=== PATIENT | female | born 1950 | race Caucasian/White ===

== ENCOUNTER 2016-09-10 10:28 | Emergency (ER) ==
[2016-09-10 11:30] LABS: MANUAL DIFF NEEDED? NO
--- NOTE | 2016-09-10 11:32 | PROVIDER DOCUMENTATION ---
HPI-General Adult <Yahir Henry - Last Filed: 09/10/16 12:54> - General Source: patient - History of Present Illness -Gen Adult Nature of Presenting Problems: 66 y/o WF c vague complaints of intermittent chest pain, abdominal pain, and chronic cough. States the chest pain are sharp, only lasting a few seconds, then are relieved. Not associated with food or exercise. Substernal without radiation. Also has abdominal, generalized, aching, without radiation. This has been for 24 hours, worsening today, associated with poor appetite. Checked blood sugar last night and it was low, but she had not eaten anything- not diabetic. Has not eaten anything today. complains of generalized fatigue. <Laurence Combs - Last Filed: 09/10/16 18:44> - General Chief Complaint: Shortness of Breath Stated Complaint: N/D, ABD PAINS Time Seen by Provider: 09/10/16 11:32 Allergies/Adverse Reactions: Patient Allergies Allergy/AdvReac Type Severity Reaction Status Date / Time No Known Allergies Allergy Verified 02/03/15 21:48 Home Medications: Levothyroxine [Synthroid] 125 microgm PO DAILY 02/03/15 Metoprolol/Hydrochlorothiazide [Metoprolol-Hctz 100-25 mg Tab] 1 each PO DAILY 02/03/15 Review of Systems - Adult - REVIEW OF SYSTEMS - ADULT Constitutional: reports: fatique. denies: chills, fever Eyes: reports: no symptoms reported. denies: decreased vision, blurred vision, double vision, eye pain Ears, Nose, Mouth & Throat: reports: no symptoms reported. denies: ear pain, nose pain, throat pain Cardiovascular: reports: see HPI, chest pain. denies: irregular heart rate, palpitations, syncope Respiratory: reports: see HPI, chronic cough, cough. denies: shortness of breath, wheezing Gastrointestinal: reports: see HPI, abdominal pain, nausea, poor appetite. denies: diarrhea, vomiting Genitourinary: reports: no symptoms reported. denies: dysuria, discharge, frequency, incontinence Musculoskeletal: reports: no symptoms reported. denies: bone pain, back pain, muscle aches Integumentary: reports: no symptoms reported. denies: rash Neurological: reports: no symptoms reported. denies: headache/migraines Psychiatric: reports: no symptoms reported Endocrine: reports: no symptoms reported Hematologic/Lymphatic: reports: no symptoms reported Allergic/Immunologic: reports: no symptoms reported All Other Systems: Reviewed and Negative <Laurence Combs - Last Filed: 09/10/16 18:44> Past History - Adult - PAST MEDICAL HISTORY-ADULT Review of Records: reports: Old Records Reviewed, Nursing Assessment Review, Medications Reviewed, Social history reviewed & non-contributory. Major Childhood Illnesses: reports: denies history Cardiovascular: reports: HTN, hyperlipidemia Respiratory: reports: denies history Gastrointestinal: reports: denies history Obstetrical/Gynecological: reports: denies history Genitourinary: reports: denies history Musculoskeletal: reports: denies history Neurological: reports: denies history Psychiatric: reports: depression Endocrine/Immune: reports: thyroid disorder Other Conditions: reports: denies history - PRIOR SURGERIES/PROCEDURES Surgical/Procedure History: reports: cholecystectomy, hysterectomy, BTL - FAMILY HISTORY Family History: reviewed, not pertinent - SOCIAL HISTORY Smoking: denies Substance Use: none/never Alcohol Use Frequency: never <Laurence Combs - Last Filed: 09/10/16 18:44> Physical Exam-General - PHYSICAL EXAM-ADULT Initial Vital Signs Reviewed: Yes - CONSTITUTIONAL General Appearance: appears well, alert, no apparent distress - EYES Eyes: PERRL/EOMI, pink conjunctivae - HEAD, EARS, NOSE, MOUTH & THROAT HENMT: normocephalic/atraumatic, moist mucous membranes, normal ENT inspection, TMs normal, pharynx normal. negative: tonsillar exudate, TM abnormal - NECK Neck: non-tender, full range of motion, supple, normal inspection. negative: lymphadenopathy - RESPIRATORY Respiratory: chest non-tender, lungs clear, normal breath sounds, no pleuratic chest pain, no respiratory distress, no accessory muscle use. negative: respiratory distress, decreased breath sounds, accessory muscle use, crackles, rales, rhonchi, stridor, wheezing - CARDIOVASCULAR Cardiovascular: normal peripheral pulses, regular rate, rhythm, no edema - GASTROINTESTINAL (ABDOMEN) Abdominal Exam: normal bowel sounds, non tender, soft, no organomegaly, no pulsatile mass. negative: abdominal bruit, abnormal bowel sounds, distended, guarding, rigid, rebound, tenderness - LYMPHATIC Lymphatic: no adenopathy - MUSCULOSKELETAL Extremity: normal gait Peripheral Pulses: radial (R): 2+, radial (L): 2+, dorsalis-pedis (R): 2+, dorsalis-pedis (L): 2+ - SKIN Integumentary: normal color, normal turgor, warm/dry - NEUROLOGIC Neurologic: grossly normal, no motor/sensory deficits - PSYCHIATRIC Psych/Mental Status: normal mood/affect, normal thought content, normal thought process, oriented x 3 <Laurence Combs - Last Filed: 09/10/16 18:44> Progress - PLAN OF CARE/RESULTS Progress/Plan/Lab Results: Orders Category Date Time Status ABDOMEN FLAT/UPRIGHT [RAD] Routine Exams 09/10/16 12:16 Taken CHEST-2 VIEWS [RAD] Stat Exams 09/10/16 11:01 Taken AMYLASE [CHEM] Stat Lab 09/10/16 11:23 Completed CBC WITH ELECTRONIC DIFF [HEME] Stat Lab 09/10/16 11:23 Completed CK PROFILE [SP CHEM] Stat Lab 09/10/16 11:23 Completed COMPREHENSIVE METABOLIC PANEL [CHEM] Stat Lab 09/10/16 11:23 Completed FREE T4 Stat Lab 09/10/16 11:23 Completed LIPASE [CHEM] Stat Lab 09/10/16 11:23 Completed MAGNESIUM [CHEM] Stat Lab 09/10/16 11:23 Completed PRO B-NATRIURETIC PEPTIDE Stat Lab 09/10/16 11:[address]IME WITH INR PL [COAG] Stat Lab 09/10/16 11:[address] [COAG] Stat Lab 09/10/16 11:23 Completed TROPONIN T Stat Lab 09/10/16 11:23 Completed TSH Stat Lab 09/10/16 11:23 Completed EKG [EKG] Stat Ther 09/10/16 11:01 Ordered Vital Signs - 24 hr 09/10/16 10:50 Temperature 98.2 F Pulse Rate 98 H Respiratory 18 Rate Blood Pressure 159/103 O2 Sat by Pulse 100 Oximetry Laboratory Tests 09/10/16 09/10/16 09/10/16 10:58 11:23 11:23 WBC RBC Hgb Hct MCV MCH MCHC RDW Std Deviation Plt Count MPV Immature Gran % (Auto) Neut % (Auto) Lymph % (Auto) [place] % (Auto) Eos % (Auto) Baso % (Auto) Immature Gran # (Auto) Neut # (Auto) Lymph # (Auto) [place] # (Auto) Eos # (Auto) Baso # (Auto) PT INR APTT (Factor Assay) Sodium 139 Potassium 3.8 Chloride 102 Carbon Dioxide 29 Anion Gap 8 BUN 12 Creatinine 0.9 Estimated GFR/1.73 m2 > 60 BUN/Creatinine Ratio 13 Glucose 117 H POC Glucose 110 H Calculated Osmolality 278 Calcium 9.1 Magnesium 2.1 Total Bilirubin 0.50 AST 21 ALT 25 Alkaline Phosphatase 87 Creatine Kinase 63 Troponin T < 0.010 Rnq-R-Htrfagdbrkw Pept Total Protein 7.1 Albumin 4.2 Globulin 3.0 Albumin/Globulin Ratio 1.0 Amylase 43 Lipase 24 TSH Free T4 09/10/16 09/10/16 09/10/16 11:23 11:23 11:23 WBC 3.90 L RBC 4.65 Hgb 12.9 Hct 39.1 MCV 84.1 MCH 27.7 MCHC 33.0 RDW Std Deviation 12.6 Plt Count 197 MPV 9.7 Immature Gran % (Auto) 0.0 Neut % (Auto) 59.9 Lymph % (Auto) 26.4 [place] % (Auto) 9.0 Eos % (Auto) 4.4 Baso % (Auto) 0.3 Immature Gran # (Auto) 0.00 Neut # (Auto) 2.34 Lymph # (Auto) 1.03 L [place] # (Auto) 0.35 Eos # (Auto) 0.17 Baso # (Auto) 0.01 PT 13.3 INR 0.98 APTT (Factor Assay) 30.6 Sodium Potassium Chloride Carbon Dioxide Anion Gap BUN Creatinine Estimated GFR/1.73 m2 BUN/Creatinine Ratio Glucose POC Glucose Calculated Osmolality Calcium Magnesium Total Bilirubin AST ALT Alkaline Phosphatase Creatine Kinase Troponin T Hkc-Z-Zkvnssrwjzf Pept 7 Total Protein Albumin Globulin Albumin/Globulin Ratio Amylase Lipase TSH Free T4 09/10/16 11:23 WBC RBC Hgb Hct MCV MCH MCHC RDW Std Deviation Plt Count MPV Immature Gran % (Auto) Neut % (Auto) Lymph % (Auto) [place] % (Auto) Eos % (Auto) Baso % (Auto) Immature Gran # (Auto) Neut # (Auto) Lymph # (Auto) [place] # (Auto) Eos # (Auto) Baso # (Auto) PT INR APTT (Factor Assay) Sodium Potassium Chloride Carbon Dioxide Anion Gap BUN Creatinine Estimated GFR/1.73 m2 BUN/Creatinine Ratio Glucose POC Glucose Calculated Osmolality Calcium Magnesium Total Bilirubin AST ALT Alkaline Phosphatase Creatine Kinase Troponin T Ocv-D-Clpbqafwpha Pept Total Protein Albumin Globulin Albumin/Globulin Ratio Amylase Lipase TSH 6.23 H Free T4 1.11 - EKG 1 Time of EKG reading by physician:: 11:32 EKG Read and Signed by:: Qi Null EKG Interpretation (*Must complete 3 of following elements*): Abnormal (nsr; cannot rule out anterior infarct age undetermined; abnormal ecg) Rate: 88 Rhythm: nsr - XRAY 1 XRAY: Bilateral XRAY Study: Chest, Abdomen Impression: Normal XRAY Interpretation: nad; <[facility] - Last Filed: 09/10/16 12:54> - PLAN OF CARE/RESULTS Progress/Plan/Lab Results: Orders Category Date Time Status ABDOMEN FLAT/UPRIGHT [RAD] Routine Exams 09/10/16 12:16 Completed CHEST-2 VIEWS [RAD] Stat Exams 09/10/16 11:01 Completed AMYLASE [CHEM] Stat Lab 09/10/16 11:23 Completed CBC WITH ELECTRONIC DIFF [HEME] Stat Lab 09/10/16 11:23 Completed CK PROFILE [SP CHEM] Stat Lab 09/10/16 11:23 Completed COMPREHENSIVE METABOLIC PANEL [CHEM] Stat Lab 09/10/16 11:23 Completed FREE T4 Stat Lab 09/10/16 11:23 Completed LIPASE [CHEM] Stat Lab 09/10/16 11:23 Completed MAGNESIUM [CHEM] Stat Lab 09/10/16 11:23 Completed PRO B-NATRIURETIC PEPTIDE Stat Lab 09/10/16 11:[address] Com[address]IME WITH INR PL [COAG] Stat Lab 09/10/16 11:[address] [COAG] Stat Lab 09/10/16 11:23 Completed TROPONIN T Stat Lab 09/10/16 11:23 Completed TSH Stat Lab 09/10/16 11:23 Completed EKG [EKG] Stat Ther 09/10/16 11:01 Draft Vital Signs Temp Pulse Resp BP Pulse Ox 09/10/16 13:38 97.1 F L 86 18 152/94 97 09/10/16 10:50 98.2 F 98 H 18 159/103 100 No Known Allergies Allergy (Verified 02/03/15 21:48) Levothyroxine [Synthroid] 125 microgm PO DAILY 06/06/15 Metoprolol/Hydrochlorothiazide [Metoprolol-Hctz 100-25 mg Tab] 1 each PO DAILY 02/03/15 Azithromycin [Zithromax Z-Samir] 250 mg PO DIRECTED #1 pkg 09/10/16 Ondansetron Odt [Zofran 8Mg Odt] 8 mg PO Q8H PRN PRN #20 tablet 09/10/16 Laboratory 09/10/16 09/10/16 09/10/16 11:23 11:23 11:23 WBC 3.90 L RBC 4.65 Hgb 12.9 Hct 39.1 MCV 84.1 MCH 27.7 MCHC 33.0 RDW Std Deviation 12.6 Plt Count 197 MPV 9.7 Immature Gran % (Auto) 0.0 Neut % (Auto) 59.9 Lymph % (Auto) 26.4 [place] % (Auto) 9.0 Eos % (Auto) 4.4 Baso % (Auto) 0.3 Immature Gran # (Auto) 0.00 Neut # (Auto) 2.34 Lymph # (Auto) 1.03 L [place] # (Auto) 0.35 Eos # (Auto) 0.17 Baso # (Auto) 0.01 PT 13.3 INR 0.98 APTT (Factor Assay) 30.6 Sodium Potassium Chloride Carbon Dioxide Anion Gap BUN Creatinine Estimated GFR/1.73 m2 BUN/Creatinine Ratio Glucose POC Glucose Calculated Osmolality Calcium Magnesium Total Bilirubin AST ALT Alkaline Phosphatase Creatine Kinase Troponin T Ltd-P-Uqqolzkpchy Pept Total Protein Albumin Globulin Albumin/Globulin Ratio Amylase Lipase TSH 6.23 H Free T4 1.11 09/10/16 09/10/16 09/10/16 11:23 11:23 11:23 WBC RBC Hgb Hct MCV MCH MCHC RDW Std Deviation Plt Count MPV Immature Gran % (Auto) Neut % (Auto) Lymph % (Auto) [place] % (Auto) Eos % (Auto) Baso % (Auto) Immature Gran # (Auto) Neut # (Auto) Lymph # (Auto) [place] # (Auto) Eos # (Auto) Baso # (Auto) PT INR APTT (Factor Assay) Sodium 139 Potassium 3.8 Chloride 102 Carbon Dioxide 29 Anion Gap 8 BUN 12 Creatinine 0.9 Estimated GFR/1.73 m2 > 60 BUN/Creatinine Ratio 13 Glucose 117 H POC Glucose Calculated Osmolality 278 Calcium 9.1 Magnesium 2.1 Total Bilirubin 0.50 AST 21 ALT 25 Alkaline Phosphatase 87 Creatine Kinase 63 Troponin T < 0.010 Ees-E-Omlmacbwacz Pept 7 Total Protein 7.1 Albumin 4.2 Globulin 3.0 Albumin/Globulin Ratio 1.0 Amylase 43 Lipase 24 TSH Free T4 09/10/16 10:58 WBC RBC Hgb Hct MCV MCH MCHC RDW Std Deviation Plt Count MPV Immature Gran % (Auto) Neut % (Auto) Lymph % (Auto) [place] % (Auto) Eos % (Auto) Baso % (Auto) Immature Gran # (Auto) Neut # (Auto) Lymph # (Auto) [place] # (Auto) Eos # (Auto) Baso # (Auto) PT INR APTT (Factor Assay) Sodium Potassium Chloride Carbon Dioxide Anion Gap BUN Creatinine Estimated GFR/1.73 m2 BUN/Creatinine Ratio Glucose POC Glucose 110 H Calculated Osmolality Calcium Magnesium Total Bilirubin AST ALT Alkaline Phosphatase Creatine Kinase Troponin T Qya-U-Tyoqaxtwcin Pept Total Protein Albumin Globulin Albumin/Globulin Ratio Amylase Lipase TSH Free T4 <Laurence Combs - Last Filed: 09/10/16 18:44> Departure <Yahir Henry - Last Filed: 09/10/16 12:54> - Departure Time of Disposition Order: 13:05 Certified Medical Emergency: Emergent <Laurence Combs - Last Filed: 09/10/16 18:44> - Departure DIAGNOSIS: Atypical chest pain, Chronic cough Disposition: HOME 01 Condition: Stable Additional Instructions: Follow up with Dr. Edmonds ED Follow Up Instructions: You have been treated by a care provider in the Emergency Department. These instructions are being provided to you so you can have an understanding of how to care for yourself upon discharge. Upon discharge from the Emergency Department, you are responsible for making arrangements for follow-up care by a physician of your choice. Take all prescribed medications as directed. Return to the Emergency Department immediately for any new or worsening symptoms. You may call the Physician Referral phone number at [phone] to obtain a list of Physicians who are taking new patients. Prescriptions: Azithromycin [Zithromax Z-Samir] 250 mg PO DIRECTED #1 pkg Ondansetron Odt [Zofran 8Mg Odt] 8 mg PO Q8H PRN PRN #20 tablet PRN Reason: Nausea Referrals: Alexandre Edmonds MD [Primary Care Provider] - Instructions: Ondansetron tablets, Cough, Adult, Rysa-jg-Sacg, Nonspecific Chest Pain, Azithromycin tablets Attestation - Scribe Verification/Attestation Scribe:: Yahir Henry Acting as Scribe for:: Laurence Combs Scribe documention review:: This chart was documented by a scribe and accurately reflects the service the provider performed and the decisions made by the provider. <Yahir Henry - Last Filed: 09/10/16 12:54> - Physician/ Mid-level Attestation Patient care was provided by Mid-level provider (CHIEF DEPUTY COURT CLERK/PA):: Yes Mid-level provider:: Laurence Combs Mid-level documentation review:: The Mid-level provider documentation, treatment plan and medical decision making was reviewed by the physician who agrees with all treatment and medical decision making by the MLP. <Laurence Combs - Last Filed: 09/10/16 18:44> Physician Attestation
[2016-09-10 11:37] LABS: BASO% 0.3 % (0.0-0.8); EOS# 0.17 X1000 (0.0-0.7); EOS% 4.4 % (0.0-10.0); HEMATOCRIT 39.1 % (37.0-47.0); HEMOGLOBIN 12.9 g/dL (12.0-16.0); LYMPH# 1.03 X1000 (1.2-3.4); LYMPH% 26.4 % (20.5-51.1); MCH 27.7 PG (27-31); MCV 84.1 FL (81-99); MONO# 0.35 X1000 (0.11-0.59); MPV 9.7 FL (7.4-10.4); NEUT% 59.9 % (42.2-75.2); PLT 197 X1000 (130-400); RBC 4.65 XMIL (4.2-5.4)
[2016-09-10 11:51] LABS: INR 0.98 (0.86-1.15); PROTIME 13.3 Seconds (12.1-15.5)
[2016-09-10 11:52] LABS: PTT PL 30.6 Seconds (22.6-43.9)
[2016-09-10 11:54] LABS: AGAP 8; ALBUMIN 4.2 g/dL (3.5-5.0); ALKALINE PHOSPHATASE 87 U/L (32-104); AMYLASE 43 U/L (20-200); BUN 12 mg/dL (8-22); CALCIUM 9.1 mg/dL (8.8-10.2); CHLORIDE 102 mmol/L (98-107); CK PROFILE 63 U/L (24-173); COSMO 278; GOT 21 U/L (10-30); GPT 25 U/L (10-36); LIPASE 24 U/L (13-60); MAGNESIUM 2.1 mg/dL (1.5-2.7); POTASSIUM 3.8 mmol/L (3.5-5.1); SODIUM 139 mmol/L (136-145); TCO2 29 mmol/L (25-35); TOTAL PROTEIN 7.1 g/dL (6.3-8.3)
[2016-09-10 12:43] LABS: FREE T4 1.11 ng/dL (0.93-1.70)
--- NOTE | 2016-09-10 13:04 | Diag Imaging Result Document ---
PROCEDURE NAME: CHEST-2 VIEWS - 09/10/2016 TWO VIEWS OF THE CHEST: Normal chest.
--- NOTE | 2016-09-10 13:05 | Diag Imaging Result Document ---
PROCEDURE NAME: ABDOMEN FLAT/UPRIGHT - 09/10/2016 FLAT AND UPRIGHT ABDOMEN: FINDINGS: There are phleboliths in the pelvis. There are surgical clips in the right upper quadrant. There is no evidence of bowel obstruction, organomegaly, or mass. IMPRESSION: Nonspecific abdomen.
--- NOTE | 2016-09-10 13:14 | EKG Report ---
Test Performed on : 09/10/2016 11:32:08 AM Test Reason : CHEST PAIN Blood Pressure : / mmHG Vent. Rate : 088 BPM Atrial Rate : 088 BPM P-R Int : 162 ms QRS Dur : 068 ms QT Int : 372 ms P-R-T Axes : 072 043 066 degrees QTc Int : 450 ms Normal sinus rhythm. Cannot rule out Anterior infarct , age undetermined Abnormal ECG When compared with ECG of 03-FEB-2015 23:03, Minimal criteria for Anterior infarct are now present Unconfirmed Result
[2016-09-10 13:40] VITALS: BP 152/94
== END 2016-09-10 13:41 | disposition home or self-care (01) ==
LOC: P.ED 10:28
DX: R07.89 Other chest pain (principal); R05 Cough; R10.9 Unspecified abdominal pain; R06.02 Shortness of breath; R53.83 Other fatigue; R11.0 Nausea; I10 Essential (primary) hypertension; E78.5 Hyperlipidemia, unspecified; Z79.899 Other long term (current) drug therapy; E07.9 Disorder of thyroid, unspecified; R94.31 Abnormal electrocardiogram [ECG] [EKG]
CPT/HCPCS: 71020; 74020; 80053; 82150; 82550; 82948; 83690; 83735; 83880; 84439; 84443; 84484; 85025; 85610; 85730; 93005; 99283